=== PATIENT | female | born 1960 | race Hispanic/Latino ===

== ENCOUNTER 2024-02-15 07:30 | Emergency (ER) | payer OTHER ==
[~2024-02-15] VITALS: Ht 160 cm; Wt 104.0 kg
[2024-02-15] VITALS (8 sets, daily range): BP systolic 107–132; BP diastolic 54–108
[~2024-02-15 07:30] MED LIST: AMOX/K CLAV875 M1 PO; GABAPENTIN300 M2 PO; MACROBID100 M1 PO; MEDDOSEPAK PO; METHOCARBAMOL750 MG PO; PYRIDIUM200 MG PO; TENORMIN50 MG PO
[2024-02-15] MEDS ORDERED: ONDANSETRON HCl 4 MG/2 ML SDV IV ONE (07:40)
[2024-02-15] MEDS ORDERED: SODIUM CHLORIDE 0.9% 1,000 ML IV ONE (07:40)
[2024-02-15 07:58] LABS: BASO% 0.3 % (0-3); EOS% 0.3 % (0-8); IMMATURE GRANULOCYTES 0.1 % (0.0-5.0); MEAN CELL VOLUME 95.8 fL CALC (80.0-100.0); MEAN CORPUSCULAR HGB 31.5 pG CALC (26.0-32.0); MEAN CORPUSCULAR HGB CONC 32.9 g/dL CAL (32.0-36.0); MONO% 5.2 % (2-13); NEUT# 4.99 thou/uL (2.00-7.15); NEUT% 70.1 % (42-76); RED BLOOD COUNT 4.51 mill/uL (4.20-5.60)
[2024-02-15 08:11] LABS: ALBUMIN 4.1 g/dL (3.2-5.0); CREATININE 0.6 mg/dL (0.5-1.0); POTASSIUM 3.9 mmol/l (3.5-5.1); TOTAL PROTEIN 7.6 g/dL (6.3-8.2)
[2024-02-15 08:16] LABS: HEMATOCRIT 43.2 % (37.0-47.0); HEMOGLOBIN 14.2 g/dl (12.0-16.0)
[2024-02-15 08:53] LABS: URINE BLOOD DIPSTICK Trace-intact (NEGATIVE); URINE COLOR Yellow; URINE GLUCOSE - DIPSTICK Negative (NEGATIVE); URINE KETONE 80 mg/dL (NEGATIVE); URINE LEUK ESTERASE Trace (NEGATIVE); URINE NITRITE - DIPSTICK Negative (Negative); URINE PROTEIN - DIPSTICK Negative (NEG-TRACE)
[2024-02-15] MEDS ORDERED: ZOFRAN4 MG/TAB PO (09:41)
== END 2024-02-15 09:54 | disposition home or self-care (01) | DRG 392 ==
LOC: ED 07:30
PROVIDERS: Family Medicine
DX: R11.2 Nausea with vomiting, unspecified (principal); E66.9 Obesity, unspecified; I10 Essential (primary) hypertension; F41.9 Anxiety disorder, unspecified; F32.A Depression, unspecified; Z20.822 Contact with and (suspected) exposure to COVID-19